=== PATIENT | male | born 1980 | race African-American/Black ===

== ENCOUNTER 2022-06-17 11:12 | Inpatient (IN) | payer OTHER ==
[2022-06-17 11:42] VITALS: BMI 27.4
[2022-06-17] MEDS ORDERED: NALOXONE HCL (KLOXXADO) 8 MG SPRAY NS PRN (13:31)
[2022-06-17] MEDS ORDERED: LOPERAMIDE HCL 2 MG CAPSULE PO PRN (13:31)
[2022-06-17] MEDS ORDERED: MAGNESIUM HYDROX 2400MG/30ML ORAL SUSPENSION 30 ML CUP PO PRN (13:31)
[2022-06-17] MEDS ORDERED: POLYETHYLENE GLYCOL (HEALTHYLAX) 3350 17 GM PACKET PO PRN (13:31)
[2022-06-17] MEDS ORDERED: IBUPROFEN 600 MG TABLET (FP) PO PRN (13:31)
[2022-06-17] MEDS ORDERED: chlordiazePOXIDE HCL 25 MG CAPSULE PO PRN (13:31)
[2022-06-17] MEDS ORDERED: ONDANSETRON *ODT* 4 MG TABLET SL PRN (13:31)
[2022-06-17] MEDS ORDERED: DICYCLOMINE HCL 10 MG CAPSULE PO PRN (13:31)
[2022-06-17] MEDS ORDERED: MAG HYDROX/AL HYDROX/SIMETH 30 ML UNIT-DOSE CUP PO PRN (13:31)
[2022-06-17] MEDS ORDERED: ACETAMINOPHEN 325 MG TABLET (FP) PO PRN ×2 (13:31)
[2022-06-17] MEDS ORDERED: BISMUTH SUBSALICYLATE 524 MG/30 ML PO PRN (13:31)
[2022-06-17] MEDS ORDERED: IBUPROFEN 400 MG TABLET (FP) PO PRN (13:31)
[2022-06-17] MEDS ORDERED: BENZOCAINE/MENTHOL (CHLORASEPTIC ) LOZENGE MM PRN (13:31)
[2022-06-17] MEDS: chlordiazePOXIDE HCL 25 MG CAPSULE PO SCH ×2 (17:28→22:15)
[2022-06-17] MEDS: THIAMINE HCL 100 MG TABLET (FP) PO SCH (22:15)
[2022-06-17] MEDS: MELATONIN 5 MG TABLETS PO SCH (22:17)
[2022-06-18] MEDS: chlordiazePOXIDE HCL 25 MG CAPSULE PO SCH ×4 (05:17→22:23)
[2022-06-18] MEDS: hydrOXYzine PAMOATE 25 MG CAPSULE (FP) PO PRN (10:17)
[2022-06-18] MEDS: NIFEdipine E.R. 30 MG TABLET PO SCH (10:17)
[2022-06-18] MEDS: METHOCARBAMOL 500 MG TABLET PO PRN (10:17)
[2022-06-18] MEDS: PRENATAL VITAMINS W/ FOLIC ACID TABLET (FP) PO SCH (10:23)
[2022-06-18 13:58] LABS: HEMATOCRIT 39.7 % (35.4-49); HEMOGLOBIN 13.6 GM/dL (11.7-16.9); MCH 30.7 pg (25.7-33.7); MCHC 34.3 g/dl (32.0-35.9); MEAN CELL VOLUME 89.6 fl (80-96); MEAN PLT VOLUME 9.1 fl (7.5-11.1); PLATELET COUNT 255 10^3/uL (134-434); RBC 4.43 M/mm3 (4.00-5.60); RDW 13.5 % (11.9-15.9); WHITE BLOOD COUNT 4.8 K/mm3 (4.0-10.0)
[2022-06-18 14:38] LABS: ALBUMIN 3.7 g/dl (3.4-5.0)
[2022-06-18 14:39] LABS: CALCIUM 9.2 mg/dL (8.5-10.1)
[2022-06-18 14:41] LABS: CREATININE 0.9 mg/dL (0.55-1.3)
[2022-06-18 14:42] LABS: BILIRUBIN,TOTAL 0.3 mg/dL (0.2-1); TOT PROT 7.2 g/dl (6.4-8.2)
[2022-06-18] MEDS: THIAMINE HCL 100 MG TABLET (FP) PO SCH (22:22)
[2022-06-18] MEDS: MELATONIN 5 MG TABLETS PO SCH (22:25)
[2022-06-19] MEDS: chlordiazePOXIDE HCL 25 MG CAPSULE PO SCH ×4 (05:04→22:36)
[2022-06-19] MEDS: NIFEdipine E.R. 30 MG TABLET PO SCH (10:20)
[2022-06-19] MEDS: METHOCARBAMOL 500 MG TABLET PO PRN (10:20)
[2022-06-19] MEDS: PRENATAL VITAMINS W/ FOLIC ACID TABLET (FP) PO SCH (10:20)
[2022-06-19] MEDS: hydrOXYzine PAMOATE 25 MG CAPSULE (FP) PO PRN (10:20)
[2022-06-19] MEDS: NICOTINE 10 MG CARTRIDGE (INHALER) IH PRN (10:29)
[2022-06-19] MEDS ORDERED: PENICILLIN G BENZATHINE 2,400,000 UNIT/4 ML PFS IM ONE (10:53)
[2022-06-19] MEDS: MELATONIN 5 MG TABLETS PO SCH (22:37)
[2022-06-19] MEDS: THIAMINE HCL 100 MG TABLET (FP) PO SCH (22:37)
[2022-06-20] MEDS ORDERED: chlordiazePOXIDE HCL 10 MG CAPSULE PO PRN
[2022-06-20 02:43] LABS: PH,URINE 5.5 (5.0-8.0); URINE APPEARANCE CLEAR; URINE BILIRUBIN NEGATIVE (NEGATIVE); URINE COLOR YELLOW; URINE GLUCOSE (UA) NEGATIVE (NEGATIVE); URINE KETONE NEGATIVE (NEGATIVE); URINE LEUK ESTERASE NEGATIVE (NEGATIVE); URINE NITRITE NEGATIVE (NEGATIVE); URINE PROTEIN NEGATIVE (NEGATIVE); URINE UROBILINOGEN 0.2 mg/dL (0.2-1.0)
[2022-06-20] MEDS: chlordiazePOXIDE HCL 10 MG CAPSULE PO SCH ×4 (05:21→22:19)
[2022-06-20] MEDS: METHOCARBAMOL 500 MG TABLET PO PRN (10:26)
[2022-06-20] MEDS: PRENATAL VITAMINS W/ FOLIC ACID TABLET (FP) PO SCH (10:26)
[2022-06-20] MEDS: NIFEdipine E.R. 30 MG TABLET PO SCH (10:26)
[2022-06-20] MEDS: hydrOXYzine PAMOATE 25 MG CAPSULE (FP) PO PRN (10:26)
[2022-06-20] MEDS: THIAMINE HCL 100 MG TABLET (FP) PO SCH (22:19)
[2022-06-20] MEDS: MELATONIN 5 MG TABLETS PO SCH (22:20)
[2022-06-20] MEDS: NICOTINE 10 MG CARTRIDGE (INHALER) IH PRN (22:33)
[2022-06-21] MEDS: chlordiazePOXIDE HCL 10 MG CAPSULE PO SCH ×2 (05:26→17:12)
[2022-06-21] MEDS: NIFEdipine E.R. 30 MG TABLET PO SCH (09:59)
[2022-06-21] MEDS: PRENATAL VITAMINS W/ FOLIC ACID TABLET (FP) PO SCH (09:59)
[2022-06-21] MEDS: MELATONIN 5 MG TABLETS PO SCH (22:06)
[2022-06-21] MEDS: THIAMINE HCL 100 MG TABLET (FP) PO SCH (22:08)
[2022-06-22] MEDS ORDERED: chlordiazePOXIDE HCL 10 MG CAPSULE PO ONE (05:00)
[2022-06-22 09:04] VITALS: BP 127/74; PULSE 86; RESP 17; TEMP 97.3
[2022-06-22] MEDS: PRENATAL VITAMINS W/ FOLIC ACID TABLET (FP) PO SCH (10:13)
[2022-06-22] MEDS: NIFEdipine E.R. 30 MG TABLET PO SCH (10:13)
== END 2022-06-22 13:15 | disposition other institution (70) | DRG 774 ==
LOC: YASAS 11:12 → Y6N 13:55
PROVIDERS: ADMIT Allergy & Immunology; ATTEND Surgery
PROC: HZ2ZZZZ Detoxification Services for Substance Abuse Treatment (ICD-10-PCS; principal; 2022-06-17)
DX: F10.230 Alcohol dependence with withdrawal, uncomplicated (principal); F14.20 Cocaine dependence, uncomplicated; F12.20 Cannabis dependence, uncomplicated; F15.10 Other stimulant abuse, uncomplicated; F17.210 Nicotine dependence, cigarettes, uncomplicated; F19.282 Other psychoactive substance dependence with psychoactive substance-induced sleep disorder; F19.280 Other psychoactive substance dependence with psychoactive substance-induced anxiety disorder; F19.24 Other psychoactive substance dependence with psychoactive substance-induced mood disorder; F39 Unspecified mood [affective] disorder; F51.05 Insomnia due to other mental disorder; Z86.718 Personal history of other venous thrombosis and embolism; Z86.711 Personal history of pulmonary embolism; Z86.19 Personal history of other infectious and parasitic diseases
CPT/HCPCS: 36415; 80053; 81003; 85027; 86593; 86780; C9803-CS; U0003; U0005

== ENCOUNTER 2022-06-22 13:15 | Inpatient (IN) | payer OTHER ==
[2022-06-22] MEDS ORDERED: P-EPHED 60MG/TRIPROLIDI 2.5MG TABLET PO PRN (14:00)
[2022-06-22] MEDS ORDERED: IBUPROFEN 400 MG TABLET (FP) PO PRN (14:00)
[2022-06-22] MEDS ORDERED: POLYETHYLENE GLYCOL (HEALTHYLAX) 3350 17 GM PACKET PO PRN (14:00)
[2022-06-22] MEDS ORDERED: MAG HYDROX/AL HYDROX/SIMETH 30 ML UNIT-DOSE CUP PO PRN (14:00)
[2022-06-22] MEDS ORDERED: BENZOCAINE/MENTHOL (CHLORASEPTIC ) LOZENGE MM PRN (14:00)
[2022-06-22] MEDS ORDERED: LOPERAMIDE HCL 2 MG CAPSULE PO PRN (14:00)
[2022-06-22] MEDS ORDERED: guaiFENesin 200 MG/10 ML 10 ML UNIT-DOSE CUPS PO PRN (14:00)
[2022-06-22] MEDS ORDERED: MAGNESIUM HYDROX 2400MG/30ML ORAL SUSPENSION 30 ML CUP PO PRN (14:00)
[2022-06-22] MEDS ORDERED: ACETAMINOPHEN 325 MG TABLET (FP) PO PRN (14:00)
[2022-06-22] MEDS: MELATONIN 5 MG TABLETS PO SCH (21:12)
[2022-06-22] MEDS: THIAMINE HCL 100 MG TABLET (FP) PO SCH (21:12)
[2022-06-23] MEDS: NIFEdipine E.R. 30 MG TABLET PO SCH (10:07)
[2022-06-23] MEDS: PRENATAL VITAMINS W/ FOLIC ACID TABLET (FP) PO SCH (10:07)
[2022-06-23] MEDS: NICOTINE 10 MG CARTRIDGE (INHALER) IH PRN (10:08)
[2022-06-23] MEDS: MELATONIN 5 MG TABLETS PO SCH (21:43)
[2022-06-23] MEDS: THIAMINE HCL 100 MG TABLET (FP) PO SCH (21:43)
[2022-06-23] MEDS: LACTULOSE 20 GM/30 ML UDC (FOR ORAL USE ONLY) PO SCH (21:44)
[2022-06-24] MEDS: NIFEdipine E.R. 30 MG TABLET PO SCH (10:15)
[2022-06-24] MEDS: PRENATAL VITAMINS W/ FOLIC ACID TABLET (FP) PO SCH (10:15)
[2022-06-24] MEDS: LACTULOSE 20 GM/30 ML UDC (FOR ORAL USE ONLY) PO SCH ×2 (10:15→21:14)
[2022-06-24] MEDS: NICOTINE 10 MG CARTRIDGE (INHALER) IH PRN (17:23)
[2022-06-24] MEDS: THIAMINE HCL 100 MG TABLET (FP) PO SCH (21:14)
[2022-06-24] MEDS: MELATONIN 5 MG TABLETS PO SCH (21:14)
[2022-06-25] MEDS: NIFEdipine E.R. 30 MG TABLET PO SCH (10:05)
[2022-06-25] MEDS: PRENATAL VITAMINS W/ FOLIC ACID TABLET (FP) PO SCH (10:05)
[2022-06-25] MEDS: LACTULOSE 20 GM/30 ML UDC (FOR ORAL USE ONLY) PO SCH ×2 (10:06→21:49)
[2022-06-25] MEDS: MELATONIN 5 MG TABLETS PO SCH (21:48)
[2022-06-25] MEDS: THIAMINE HCL 100 MG TABLET (FP) PO SCH (21:49)
[2022-06-26] MEDS ORDERED: PENICILLIN G BENZATHINE 2,400,000 UNIT/4 ML PFS IM ONE (10:00)
[2022-06-26] MEDS: PRENATAL VITAMINS W/ FOLIC ACID TABLET (FP) PO SCH (10:20)
[2022-06-26] MEDS: LACTULOSE 20 GM/30 ML UDC (FOR ORAL USE ONLY) PO SCH ×2 (10:20→21:39)
[2022-06-26] MEDS: NIFEdipine E.R. 30 MG TABLET PO SCH (10:20)
[2022-06-26] MEDS: MELATONIN 5 MG TABLETS PO SCH (21:39)
[2022-06-26] MEDS: THIAMINE HCL 100 MG TABLET (FP) PO SCH (21:39)
[2022-06-26] MEDS: NICOTINE 10 MG CARTRIDGE (INHALER) IH PRN (21:39)
[2022-06-27] MEDS: LACTULOSE 20 GM/30 ML UDC (FOR ORAL USE ONLY) PO SCH ×2 (09:46→21:12)
[2022-06-27] MEDS: NIFEdipine E.R. 30 MG TABLET PO SCH (09:47)
[2022-06-27] MEDS: PRENATAL VITAMINS W/ FOLIC ACID TABLET (FP) PO SCH (09:47)
[2022-06-27] MEDS: NICOTINE 10 MG CARTRIDGE (INHALER) IH PRN (09:48)
[2022-06-27] MEDS: MELATONIN 5 MG TABLETS PO SCH (21:12)
[2022-06-27] MEDS: THIAMINE HCL 100 MG TABLET (FP) PO SCH (21:12)
[2022-06-28] MEDS: NIFEdipine E.R. 30 MG TABLET PO SCH (09:53)
[2022-06-28] MEDS: PRENATAL VITAMINS W/ FOLIC ACID TABLET (FP) PO SCH (09:53)
[2022-06-28] MEDS: NICOTINE 10 MG CARTRIDGE (INHALER) IH PRN ×2 (10:15→21:22)
[2022-06-28] MEDS: THIAMINE HCL 100 MG TABLET (FP) PO SCH (21:22)
[2022-06-28] MEDS: MELATONIN 5 MG TABLETS PO SCH (21:22)
[2022-06-29] MEDS: PRENATAL VITAMINS W/ FOLIC ACID TABLET (FP) PO SCH (09:47)
[2022-06-29] MEDS: NIFEdipine E.R. 30 MG TABLET PO SCH (09:47)
[2022-06-29] MEDS: NICOTINE 10 MG CARTRIDGE (INHALER) IH PRN ×2 (09:47→22:18)
[2022-06-29] MEDS: THIAMINE HCL 100 MG TABLET (FP) PO SCH (22:17)
[2022-06-29] MEDS: MELATONIN 5 MG TABLETS PO SCH (22:17)
[2022-06-30] MEDS: PRENATAL VITAMINS W/ FOLIC ACID TABLET (FP) PO SCH (09:38)
[2022-06-30] MEDS: NICOTINE 10 MG CARTRIDGE (INHALER) IH PRN ×2 (09:38→21:57)
[2022-06-30] MEDS: NIFEdipine E.R. 30 MG TABLET PO SCH (09:38)
[2022-06-30] MEDS: THIAMINE HCL 100 MG TABLET (FP) PO SCH (21:56)
[2022-06-30] MEDS: MELATONIN 5 MG TABLETS PO SCH (21:56)
[2022-07-01] MEDS: NIFEdipine E.R. 30 MG TABLET PO SCH (10:05)
[2022-07-01] MEDS: PRENATAL VITAMINS W/ FOLIC ACID TABLET (FP) PO SCH (10:05)
[2022-07-01] MEDS: NICOTINE 10 MG CARTRIDGE (INHALER) IH PRN ×2 (10:06→21:34)
[2022-07-01] MEDS: THIAMINE HCL 100 MG TABLET (FP) PO SCH (21:33)
[2022-07-01] MEDS: MELATONIN 5 MG TABLETS PO SCH (21:33)
[2022-07-02] MEDS: PRENATAL VITAMINS W/ FOLIC ACID TABLET (FP) PO SCH (09:44)
[2022-07-02] MEDS: NIFEdipine E.R. 30 MG TABLET PO SCH (09:44)
[2022-07-02] MEDS: NICOTINE 10 MG CARTRIDGE (INHALER) IH PRN ×2 (09:44→21:09)
[2022-07-02] MEDS: THIAMINE HCL 100 MG TABLET (FP) PO SCH (21:09)
[2022-07-02] MEDS: MELATONIN 5 MG TABLETS PO SCH (21:09)
[2022-07-03] MEDS ORDERED: PENICILLIN G BENZATHINE 2,400,000 UNIT/4 ML PFS IM ONE (10:00)
[2022-07-03] MEDS: PRENATAL VITAMINS W/ FOLIC ACID TABLET (FP) PO SCH (10:49)
[2022-07-03] MEDS: NIFEdipine E.R. 30 MG TABLET PO SCH (10:49)
[2022-07-03] MEDS: NICOTINE 10 MG CARTRIDGE (INHALER) IH PRN ×2 (10:50→21:31)
[2022-07-03] MEDS: THIAMINE HCL 100 MG TABLET (FP) PO SCH (21:31)
[2022-07-03] MEDS: MELATONIN 5 MG TABLETS PO SCH (21:31)
[2022-07-04] MEDS: PRENATAL VITAMINS W/ FOLIC ACID TABLET (FP) PO SCH (09:45)
[2022-07-04] MEDS: NIFEdipine E.R. 30 MG TABLET PO SCH (09:45)
[2022-07-04] MEDS: NICOTINE 10 MG CARTRIDGE (INHALER) IH PRN ×2 (09:45→21:10)
[2022-07-04] MEDS: DOCUSATE SODIUM 100 MG CAPSULE (FP) PO PRN (11:54)
[2022-07-04] MEDS: HYDROCORTISONE 2.5% TOPICAL CREAM 30 GM TUBE TP PRN (11:54)
[2022-07-04] MEDS: AMOX TR/POT CLAV 875MG/125MG TABLETS (FP) PO SCH (17:23)
[2022-07-04] MEDS: MELATONIN 5 MG TABLETS PO SCH (21:10)
[2022-07-04] MEDS: THIAMINE HCL 100 MG TABLET (FP) PO SCH (21:10)
[2022-07-05] MEDS: AMOX TR/POT CLAV 875MG/125MG TABLETS (FP) PO SCH ×2 (07:19→18:10)
[2022-07-05] MEDS: PRENATAL VITAMINS W/ FOLIC ACID TABLET (FP) PO SCH (10:19)
[2022-07-05] MEDS: NIFEdipine E.R. 30 MG TABLET PO SCH (10:19)
[2022-07-05] MEDS: hydrOXYzine PAMOATE 25 MG CAPSULE (FP) PO PRN (18:10)
[2022-07-05] MEDS: THIAMINE HCL 100 MG TABLET (FP) PO SCH (21:10)
[2022-07-05] MEDS: MELATONIN 5 MG TABLETS PO SCH (21:10)
[2022-07-05] MEDS: DOCUSATE SODIUM 100 MG CAPSULE (FP) PO PRN (21:10)
[2022-07-06] MEDS: AMOX TR/POT CLAV 875MG/125MG TABLETS (FP) PO SCH ×2 (07:02→17:26)
[2022-07-06] MEDS: PRENATAL VITAMINS W/ FOLIC ACID TABLET (FP) PO SCH (09:42)
[2022-07-06] MEDS: NIFEdipine E.R. 30 MG TABLET PO SCH (09:42)
[2022-07-06] MEDS: hydrOXYzine PAMOATE 25 MG CAPSULE (FP) PO PRN (21:17)
[2022-07-06] MEDS: THIAMINE HCL 100 MG TABLET (FP) PO SCH (21:17)
[2022-07-06] MEDS: MELATONIN 5 MG TABLETS PO SCH (21:17)
[2022-07-06] MEDS: NICOTINE 10 MG CARTRIDGE (INHALER) IH PRN (21:17)
[2022-07-07] MEDS: AMOX TR/POT CLAV 875MG/125MG TABLETS (FP) PO SCH ×2 (07:12→17:10)
[2022-07-07] MEDS: NIFEdipine E.R. 30 MG TABLET PO SCH (09:38)
[2022-07-07] MEDS: HYDROCORTISONE 2.5% TOPICAL CREAM 30 GM TUBE TP PRN (09:38)
[2022-07-07] MEDS: PRENATAL VITAMINS W/ FOLIC ACID TABLET (FP) PO SCH (09:38)
[2022-07-07] MEDS: hydrOXYzine PAMOATE 25 MG CAPSULE (FP) PO PRN ×2 (09:39→21:16)
[2022-07-07] MEDS: MELATONIN 5 MG TABLETS PO SCH (21:16)
[2022-07-07] MEDS: THIAMINE HCL 100 MG TABLET (FP) PO SCH (21:16)
[2022-07-07] MEDS: NICOTINE 10 MG CARTRIDGE (INHALER) IH PRN (21:16)
[2022-07-08] MEDS: AMOX TR/POT CLAV 875MG/125MG TABLETS (FP) PO SCH ×2 (07:01→17:03)
[2022-07-08] MEDS: PRENATAL VITAMINS W/ FOLIC ACID TABLET (FP) PO SCH (10:12)
[2022-07-08] MEDS: NIFEdipine E.R. 30 MG TABLET PO SCH (10:13)
[2022-07-08] MEDS: hydrOXYzine PAMOATE 25 MG CAPSULE (FP) PO PRN ×2 (10:13→21:27)
[2022-07-08] MEDS: MELATONIN 5 MG TABLETS PO SCH (21:27)
[2022-07-08] MEDS: THIAMINE HCL 100 MG TABLET (FP) PO SCH (21:27)
[2022-07-08] MEDS: DOCUSATE SODIUM 100 MG CAPSULE (FP) PO PRN (21:27)
[2022-07-08] MEDS: NICOTINE 10 MG CARTRIDGE (INHALER) IH PRN (21:30)
[2022-07-09] MEDS: AMOX TR/POT CLAV 875MG/125MG TABLETS (FP) PO SCH ×2 (07:09→16:56)
[2022-07-09] MEDS: PRENATAL VITAMINS W/ FOLIC ACID TABLET (FP) PO SCH (10:12)
[2022-07-09] MEDS: NICOTINE 10 MG CARTRIDGE (INHALER) IH PRN (10:12)
[2022-07-09] MEDS: NIFEdipine E.R. 30 MG TABLET PO SCH (10:12)
[2022-07-09] MEDS: THIAMINE HCL 100 MG TABLET (FP) PO SCH (21:23)
[2022-07-09] MEDS: MELATONIN 5 MG TABLETS PO SCH (21:23)
[2022-07-09] MEDS: hydrOXYzine PAMOATE 25 MG CAPSULE (FP) PO PRN (21:24)
[2022-07-10] MEDS: AMOX TR/POT CLAV 875MG/125MG TABLETS (FP) PO SCH ×2 (07:07→16:47)
[2022-07-10] MEDS: PRENATAL VITAMINS W/ FOLIC ACID TABLET (FP) PO SCH (09:51)
[2022-07-10] MEDS: NIFEdipine E.R. 30 MG TABLET PO SCH (09:52)
[2022-07-10] MEDS: NICOTINE 10 MG CARTRIDGE (INHALER) IH PRN ×2 (16:47→21:13)
[2022-07-10] MEDS: hydrOXYzine PAMOATE 25 MG CAPSULE (FP) PO PRN (16:47)
[2022-07-10] MEDS: DOCUSATE SODIUM 100 MG CAPSULE (FP) PO PRN (21:13)
[2022-07-10] MEDS: MELATONIN 5 MG TABLETS PO SCH (21:13)
[2022-07-10] MEDS: THIAMINE HCL 100 MG TABLET (FP) PO SCH (21:13)
[2022-07-11] MEDS: AMOX TR/POT CLAV 875MG/125MG TABLETS (FP) PO SCH (07:07)
[2022-07-11] MEDS: NIFEdipine E.R. 30 MG TABLET PO SCH (10:14)
[2022-07-11] MEDS: PRENATAL VITAMINS W/ FOLIC ACID TABLET (FP) PO SCH (10:14)
[2022-07-11] MEDS: hydrOXYzine PAMOATE 25 MG CAPSULE (FP) PO PRN (14:16)
[2022-07-11] MEDS: NICOTINE 10 MG CARTRIDGE (INHALER) IH PRN (14:16)
[2022-07-11] MEDS: THIAMINE HCL 100 MG TABLET (FP) PO SCH (21:16)
[2022-07-11] MEDS: MELATONIN 5 MG TABLETS PO SCH (21:16)
[2022-07-12] MEDS: NICOTINE 10 MG CARTRIDGE (INHALER) IH PRN ×2 (06:35→21:10)
[2022-07-12] MEDS: PRENATAL VITAMINS W/ FOLIC ACID TABLET (FP) PO SCH (10:15)
[2022-07-12] MEDS: NIFEdipine E.R. 30 MG TABLET PO SCH (10:15)
[2022-07-12] MEDS: hydrOXYzine PAMOATE 25 MG CAPSULE (FP) PO PRN (19:58)
[2022-07-12] MEDS: THIAMINE HCL 100 MG TABLET (FP) PO SCH (21:10)
[2022-07-12] MEDS: MELATONIN 5 MG TABLETS PO SCH (21:10)
[2022-07-13] MEDS: NICOTINE 10 MG CARTRIDGE (INHALER) IH PRN (10:20)
[2022-07-13] MEDS: NIFEdipine E.R. 30 MG TABLET PO SCH (10:20)
[2022-07-13] MEDS: PRENATAL VITAMINS W/ FOLIC ACID TABLET (FP) PO SCH (10:20)
[2022-07-13] MEDS: hydrOXYzine PAMOATE 25 MG CAPSULE (FP) PO PRN (21:19)
[2022-07-13] MEDS: THIAMINE HCL 100 MG TABLET (FP) PO SCH (21:19)
[2022-07-13] MEDS: MELATONIN 5 MG TABLETS PO SCH (21:19)
[2022-07-14] MEDS: NIFEdipine E.R. 30 MG TABLET PO SCH (09:37)
[2022-07-14] MEDS: PRENATAL VITAMINS W/ FOLIC ACID TABLET (FP) PO SCH (09:37)
[2022-07-14] MEDS: NICOTINE 10 MG CARTRIDGE (INHALER) IH PRN ×2 (12:16→19:20)
[2022-07-14] MEDS: hydrOXYzine PAMOATE 25 MG CAPSULE (FP) PO PRN (19:19)
[2022-07-14] MEDS: MELATONIN 5 MG TABLETS PO SCH (21:45)
[2022-07-14] MEDS: THIAMINE HCL 100 MG TABLET (FP) PO SCH (21:45)
[2022-07-15] MEDS: NIFEdipine E.R. 30 MG TABLET PO SCH (10:05)
[2022-07-15] MEDS: PRENATAL VITAMINS W/ FOLIC ACID TABLET (FP) PO SCH (10:05)
[2022-07-15] MEDS: NICOTINE 10 MG CARTRIDGE (INHALER) IH PRN ×2 (10:05→18:05)
[2022-07-15] MEDS: hydrOXYzine PAMOATE 25 MG CAPSULE (FP) PO PRN (18:04)
[2022-07-15] MEDS: MELATONIN 5 MG TABLETS PO SCH (21:41)
[2022-07-15] MEDS: THIAMINE HCL 100 MG TABLET (FP) PO SCH (21:41)
[2022-07-16] MEDS: NIFEdipine E.R. 30 MG TABLET PO SCH (09:42)
[2022-07-16] MEDS: PRENATAL VITAMINS W/ FOLIC ACID TABLET (FP) PO SCH (09:42)
[2022-07-16] MEDS: NICOTINE 10 MG CARTRIDGE (INHALER) IH PRN ×2 (12:02→21:36)
[2022-07-16] MEDS: MELATONIN 5 MG TABLETS PO SCH (21:35)
[2022-07-16] MEDS: THIAMINE HCL 100 MG TABLET (FP) PO SCH (21:35)
[2022-07-16] MEDS: hydrOXYzine PAMOATE 25 MG CAPSULE (FP) PO PRN (21:35)
[2022-07-17] MEDS: NICOTINE 10 MG CARTRIDGE (INHALER) IH PRN ×2 (10:18→21:36)
[2022-07-17] MEDS: NIFEdipine E.R. 30 MG TABLET PO SCH (10:18)
[2022-07-17] MEDS: PRENATAL VITAMINS W/ FOLIC ACID TABLET (FP) PO SCH (10:18)
[2022-07-17] MEDS: hydrOXYzine PAMOATE 25 MG CAPSULE (FP) PO PRN (21:36)
[2022-07-17] MEDS: MELATONIN 5 MG TABLETS PO SCH (21:36)
[2022-07-17] MEDS: THIAMINE HCL 100 MG TABLET (FP) PO SCH (21:36)
[2022-07-18 09:12] VITALS: RESP 18
[2022-07-18] MEDS: NIFEdipine E.R. 30 MG TABLET PO SCH (10:34)
[2022-07-18] MEDS: PRENATAL VITAMINS W/ FOLIC ACID TABLET (FP) PO SCH (10:34)
[2022-07-18] MEDS: NICOTINE 10 MG CARTRIDGE (INHALER) IH PRN ×2 (10:35→21:22)
[2022-07-18] MEDS: MELATONIN 5 MG TABLETS PO SCH (21:21)
[2022-07-18] MEDS: THIAMINE HCL 100 MG TABLET (FP) PO SCH (21:21)
[2022-07-18] MEDS: hydrOXYzine PAMOATE 25 MG CAPSULE (FP) PO PRN (21:21)
[2022-07-19] MEDS: PRENATAL VITAMINS W/ FOLIC ACID TABLET (FP) PO SCH (09:59)
[2022-07-19] MEDS: NIFEdipine E.R. 30 MG TABLET PO SCH (09:59)
[2022-07-19] MEDS: NICOTINE 10 MG CARTRIDGE (INHALER) IH PRN ×2 (09:59→21:15)
[2022-07-19] MEDS: MELATONIN 5 MG TABLETS PO SCH (21:15)
[2022-07-19] MEDS: THIAMINE HCL 100 MG TABLET (FP) PO SCH (21:15)
[2022-07-20 07:03] VITALS: BP 139/85; PULSE 79; TEMP 97.8
[2022-07-20] MEDS: PRENATAL VITAMINS W/ FOLIC ACID TABLET (FP) PO SCH (09:04)
[2022-07-20] MEDS: NIFEdipine E.R. 30 MG TABLET PO SCH (09:04)
[2022-07-20] MEDS: NICOTINE 10 MG CARTRIDGE (INHALER) IH PRN (09:04)
== END 2022-07-20 09:16 | disposition home or self-care (01) | DRG 772 ==
LOC: YASAS 13:15 → Y3W 13:16
PROVIDERS: ADMIT Allergy & Immunology; ATTEND Psychiatry & Neurology Pain Medicine
PROC: HZ42ZZZ Group Counseling for Substance Abuse Treatment, Cognitive-Behavioral (ICD-10-PCS; principal; 2022-06-22)
DX: F10.20 Alcohol dependence, uncomplicated (principal); F14.20 Cocaine dependence, uncomplicated; F17.210 Nicotine dependence, cigarettes, uncomplicated; F19.282 Other psychoactive substance dependence with psychoactive substance-induced sleep disorder; F19.280 Other psychoactive substance dependence with psychoactive substance-induced anxiety disorder; F51.05 Insomnia due to other mental disorder; F41.9 Anxiety disorder, unspecified; F32.A Depression, unspecified; I10 Essential (primary) hypertension; K61.1 Rectal abscess; R79.89 Other specified abnormal findings of blood chemistry; Z86.19 Personal history of other infectious and parasitic diseases; Z86.718 Personal history of other venous thrombosis and embolism
CPT/HCPCS: 36415; 82140; 86803